=== PATIENT | male | born 1965 | race Caucasian/White ===

== ENCOUNTER 2019-03-17 18:21 | Emergency (ER) | payer MEDICAID ==
[~2019-03-17] VITALS: Ht 185.4 cm; Wt 81.0 kg
[2019-03-17 18:25] VITALS: BP 127/74
--- NOTE | 2019-03-17 18:57 | NUR ---
MEDICAL RADIATION THERAPISTNataliia, at bedside to evaluate pt.
--- NOTE | 2019-03-17 19:17 | NUR ---
Patient/Caregiver given discharge instructions and they have confirmed that they understand the instructions. Patient ambulatory with steady gait.
== END 2019-03-17 19:35 | disposition home or self-care (01) ==
LOC: ED 19:23
DX: H11.32 Conjunctival hemorrhage, left eye (principal)
CPT/HCPCS: 36415; 80329; 99283; G0480

== ENCOUNTER 2019-04-15 11:24 | Emergency (ER) | payer MEDICAID ==
[~2019-04-15] VITALS: Ht 185.4 cm; Wt 80.0 kg
[2019-04-15 11:31] VITALS: BP 117/71
== END 2019-04-15 12:22 | disposition home or self-care (01) ==
LOC: ED 12:00
DX: L04.8 Acute lymphadenitis of other sites (principal)
CPT/HCPCS: 99282

== ENCOUNTER 2020-02-09 10:54 | Emergency (ER) | payer MEDICAID, OTHER ==
[~2020-02-09] VITALS: Ht 185.4 cm; Wt 86.5 kg
[2020-02-09 11:28] VITALS: BP 130/85
--- NOTE | 2020-02-09 11:29 | NUR ---
pt ambulated to room, resting on gurney, NAD, denies additional needs, call light within reach, changed into Piero jimenez MD at bedside performing assessment and discussing plan. MATILDE.
[2020-02-09] MEDS ORDERED: NAPROXEN 500 MG TABLET ONE (11:38)
[2020-02-09] MEDS ORDERED: NAPROXEN 500 MG TABLET PO ONE (12:00)
== END 2020-02-09 11:49 | disposition home or self-care (01) ==
LOC: ED 11:40
DX: S39.012A Strain of muscle, fascia and tendon of lower back, initial encounter (principal); X58.XXXA Exposure to other specified factors, initial encounter; Y93.89 Activity, other specified; Y92.89 Other specified places as the place of occurrence of the external cause; Y99.8 Other external cause status
CPT/HCPCS: 99282

== ENCOUNTER 2020-05-22 09:25 | Emergency (ER) | payer OTHER ==
[~2020-05-22] VITALS: Ht 185.4 cm; Wt 88.6 kg
--- NOTE | 2020-05-22 09:53 | NUR ---
LLQ PAIN, STARTED 2 DAYS AGO, SUBSIDED, RESTARTED TODAY. CALLED EMS 2 DAYS AGO FOR PAIN - DECLINED ED EVAL. HX COLON RESECTION FOR DIVERTICULITIS. TODAY, WAS SEEN AT [facility] RECEIVED ZOFRAN AND PAIN SHOT - UNABLE TO RECALL MED NAME; NO DC PAPERWORK. TOOK CAB TO [facility] FROM URGENT CARE. NAUSEA WHEN PAIN WAS INTENSE. DENIES VOMITING, DIARRHEA, CONSTIPATION. REPORTS URINARY URGENCY; DENIES PAIN. URINE SPECIMEN ON COUNTER: DARK YELLOW. LAST BM: TODAY. LAST ORAL INTAKE: 0400 TODAY.
--- NOTE | 2020-05-22 10:05 | NUR ---
URINE SPECIMEN WILL BE SENT TO LAB; NO ORDER, YET
--- NOTE | 2020-05-22 10:46 | NUR ---
TO CT PER CHRIS
[2020-05-22 11:02] LABS: MICROSCOPIC INDICATED
[2020-05-22 11:08] LABS: BASOPHILS # (AUTO) 0.01 x10^3/uL (0-0.1); BASOPHILS % (AUTO) 0 % (0-1); EOSINOPHILS # (AUTO) 0.01 x10^3/uL (0-0.4); EOSINOPHILS % (AUTO) 0 % (1-7); LYMPHOCYTES % (AUTO) 5 % (22-44); MD NO; MEAN CORPUSCULAR HEMOGLOBIN 30.5 pg (27.5-34.5); MEAN CORPUSCULAR HGB CONC 33.8 g/dL (33.2-36.2); MEAN CORPUSCULAR VOLUME 90.3 fL (81-97); MEAN PLATELET VOLUME 8.9 fL (7.4-10.4); MONOCYTES # (AUTO) 0.24 x10^3/uL (0.2-0.8); MONOCYTES % (AUTO) 2 % (2-9); NEUTROPHILS % (AUTO) 93 % (42-75); PLATELET COUNT 195 x10^3/uL (130-400); RED BLOOD COUNT 5.15 x10^6/uL (4.38-5.82); RED CELL DISTRIBUTION WIDTH 13.4 % (9.4-14.8)
[2020-05-22 11:20] LABS: ALBUMIN 3.9 g/dL (3.4-5.0); CALCIUM 9.3 mg/dL (8.5-10.1)
[2020-05-22 11:24] LABS: ALANINE AMINOTRANSFERASE 36 U/L (12-78); ALKALINE PHOSPHATASE 57 U/L (45-117); BILIRUBIN,TOTAL 0.6 mg/dL (0.2-1.0); CREATININE 1.11 mg/dL (0.7-1.3); TOTAL PROTEIN 7.3 g/dL (6.4-8.2)
--- NOTE | 2020-05-22 11:46 | NUR ---
PT RESTING QUIETLY, SIDE RAIL UP X2, CALL LIGHT W/IN REACH. ERP AWAITING TEST RESULTS.
--- NOTE | 2020-05-22 11:58 | NUR ---
PT REPORT TO ALEJANDRO VIEIRA RN. PT CARE TRANSFERRED.
[2020-05-22 12:03] LABS: ANION GAP 8 mmol/L (5-15); CHLORIDE 107 mmol/L (98-107)
[2020-05-22 12:49] VITALS: BP 109/62
== END 2020-05-22 12:50 | disposition home or self-care (01) ==
LOC: ED 10:42
DX: N13.2 Hydronephrosis with renal and ureteral calculous obstruction (principal); R31.9 Hematuria, unspecified; R10.32 Left lower quadrant pain; R39.15 Urgency of urination
CPT/HCPCS: 36415; 74176; 80053; 81001; 85025; 99284